=== PATIENT | male | born 1985 | race African-American/Black ===

== ENCOUNTER 2016-11-11 21:30 | Emergency (ER) | payer OTHER, BC ==
[~2016-11-11] VITALS: Ht 190.5 cm; Wt 131.5 kg
[2016-11-11 22:22] VITALS: BP 152/112
[2016-11-11] MEDS ORDERED: AMLO5TAB4 PO (22:43)
--- NOTE | 2016-11-11 22:43 | PHYS DOC ---
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 He states that he was going up stairs when he tripped over something in the platform. He states that he rolled his left ankle. He is having pain on the left lateral side of his ankle. Peripheral pulses 2+ cap refill brisk less than 2 seconds. Patient states that he was unable to place weight on the foot and ankle area. Review of Systems Review of Systems Constitutional: Denies fever or chills [] Eyes: Denies change in visual acuity, redness, or eye pain [] HENT: Denies nasal congestion or sore throat [] Respiratory: Denies cough or shortness of breath [] Cardiovascular: No additional information not addressed in HPI [] GI: Denies abdominal pain, nausea, vomiting, bloody stools or diarrhea [] : Denies dysuria or hematuria [] Musculoskeletal: Denies back pain or joint pain [] Integument: Denies rash or skin lesions [] Neurologic: Denies headache, focal weakness or sensory changes [] Endocrine: Denies polyuria or polydipsia [] Current Medications Current Medications Current Medications Medications (Trade) Dose Ordered Sig/Saray Start Time Stop Time Status Last Admin Dose Admin Ibuprofen (Motrin) 800 mg 1X ONCE 11/11/16 22:45 11/11/16 22:46 Allergies Allergies Allergies Coded Allergies Type Severity Reaction Last Updated Verified No Known Drug Allergies 11/11/16 No Physical Exam Physical Exam Constitutional: Well developed, well nourished, no acute distress, non-toxic appearance. [] HENT: Normocephalic, atraumatic, bilateral external ears normal, oropharynx moist, no oral exudates, nose normal. [] Eyes: PERRLA, EOMI, conjunctiva normal, no discharge. [] Neck: Normal range of motion, no tenderness, supple, no stridor. [] Cardiovascular:Heart rate regular rhythm, no murmur [] Lungs & Thorax: Bilateral breath sounds clear to auscultation [] Skin: Warm, dry, no erythema, no rash. [] Back: No tenderness Extremities: No tenderness, no cyanosis, no clubbing, ROM intact, no edema. Left lateral ankle pain and discomfort with slight swelling noted. No discoloration noted. Peripheral pulses 2+ cap refill brisk less than 2 seconds. Neurologic: Alert and oriented X 3, normal motor function, normal sensory function, no focal deficits noted. [] Psychologic: Affect normal, judgement normal, mood normal. [] Current Patient Data Vital Signs Vital Signs Date Time Temp Pulse Resp B/P (MAP) Pulse Ox O2 Delivery O2 Flow Rate FiO2 11/11/16 22:22 98.5 99 16 96 Room Air 98.5 EKG EKG [] Radiology/Procedures Radiology/Procedures [] Course & Med Decision Making Course & Med Decision Making Pertinent Labs and Imaging studies reviewed. (See chart for details) X-rays were negative for any bony abnormalities per Dr. Govea. Patient's blood pressure was elevated. Patient denies any history of hypertension. Patient denies any shortness of air difficulty breathing he denies any chest pain, he denies any headache or blurred vision. He'll be provided with Norvasc at discharge to take on a daily basis with recommendations to monitor his blood pressure follow-up with his primary care physician. Patient will be placed in Gonzalez wrap and an Air-Stirrup splint and placed on crutches with orthopedic consult. Patient will be discharged home in stable condition with recommendations for ibuprofen and Tylenol for pain and discomfort ice packs on 20 minutes off 20 minutes several times a day elevation as much as possible. Since symptoms to return back to emergency department been provided. [] Dragon Disclaimer Dragon Disclaimer This electronic medical record was generated, in whole or in part, using a voice recognition dictation system. Departure Departure Impression: Primary Impression: Left ankle sprain Additional Impression: HTN (hypertension) Disposition: 01 HOME, SELF-CARE Condition: STABLE Referrals: NO PCP (PCP) WHITLEY PAUL MD Patient Instructions: Ankle Sprain, [id number], Crutch Use, [id number], Hypertension, [id number] Additional Instructions: Your x-rays were negative for any bony abnormalities. Your blood pressure was elevated here in the emergency department. Provided Norvasc to help bring her blood pressure down. It is recommended that you monitor your blood pressure follow-up to primary care physician in the next 5-7 days. Ice packs on 20 minutes off 20 minutes several times a day elevation as much as possible. Tylenol or ibuprofen for pain and discomfort. Wear the Gonzalez wrap for the next 5-7 days in the Air-Stirrup splint for the next 7 -10 days. You may utilize the crutches for the next 5-7 days to help with pain and discomfort. If you are not able to bear weight at that time he'll need to follow up sooner with orthopedic. Follow-up with orthopedic in the next 7-10 days. Return back to emergency prior signs symptoms of become worse. Scripts Amlodipine Besylate (NORVASC) 5 Mg Tablet 1 TAB PO DAILY, #30 TAB 5 Refills Prov: SHIRAZ PHELPS APRN 11/11/16 Problem Qualifiers SHIRAZ PHELPS APRN November 11, 2016 22:43
[2016-11-11] MEDS ORDERED: IBUPROFEN 800 MG TABLET. PO ONE (22:45)
--- NOTE | 2016-11-12 07:20 | RAD ---
Exam performed: Left ankle 3 views. History: Left ankle injury. Date of service: 11/11/16. Comparison: None available 3 views left ankle findings: Normal alignment of the ankle mortise is preserved. There is no acute fracture or dislocation. There is diffuse soft tissue swelling, no foreign body. Impression: No acute and bony abnormality seen in the left ankle. Diffuse soft tissue swelling is noted
== END 2016-11-11 23:05 | disposition home or self-care (01) ==
LOC: ER 21:30
DX: S93.402A Sprain of unspecified ligament of left ankle, initial encounter (principal); I10 Essential (primary) hypertension; W18.41XA Slipping, tripping and stumbling without falling due to stepping on object, initial encounter; Y93.12 Activity, springboard and platform diving; Y92.89 Other specified places as the place of occurrence of the external cause; Y99.8 Other external cause status
CPT/HCPCS: 29515; 73610; 99284-25